=== PATIENT | female | born 1955 | race Caucasian/White ===

== ENCOUNTER 2017-05-06 13:19 | Inpatient (IN) | payer OTHER ==
[~2017-05-06] VITALS: Ht 167.6 cm; Wt 70.5 kg
[~2017-05-06 13:19] MED LIST: ACETAMINOPHEN500 MG PO; ATIVAN1 MG PO; Ativan PO; B-COMPLEX WITH1 EAC3 PO; CLARITIN10 M1 PO; COMBIPATCH 0.01 EACH TD; COQ-10100 MG PO; CRESTOR5 MG PO; EMS NITROSTAT0.4 MG SL; ESTER-C 1,0001 EACH PO; FIORICET,ESG1 TABLET PO; FISH OIL 1,0001 EAC7 PO; FLEXERIL10 MG PO; HYDROCHLOROTHIA25 MG PO; KEFLEX500 MG PO; LORAZEPAM1 MG PO; MACROBID100 MG PO; MIRALAX255 GM PO; MIRTAZAPINE15 MG PO; OXYCONTIN20 MG PO; OXYCONTIN40 MG PO; PERCOCET 10/1 TABLET PO; PROAIR HFA8.5 GM IH; PROCARDIA XL30 MG PO; PROVENTIL,2.5 MG/0.5 IH; PROVENTIL17 G1 IH; Remeron PO; SUDAFED PE PRE1 EAC2 PO; SUDAFED30 MG PO; Sudafed PO; ZANTAC300 MG PO
[2017-05-06 14:05] LABS: HEMATOCRIT 38.1 % (36.0-46.0); MCH 29.2 PG (29.0-34.0); MCHC 34.4 G/DL (30.0-36.0); MCV 84.9 FL (83-99); MEAN PLAT.VOLUME 9.5 uM^3 (9.5-12.4); PLATELET COUNT 287 K/uL (156-360); RBC DIS.WIDTH-CV 13.4 % (11.8-14.6); RBC DIS.WIDTH-SD 42.1 % (39-53); RED BLOOD COUNT 4.49 M/uL (3.80-5.20); WHITE BLOOD COUNT 24.8 K/uL (4.1-10.2)
[2017-05-06 14:24] LABS: CHLORIDE 93 mEq/L (99-109); POTASSIUM 2.6 mEq/L (3.7-5.4); SODIUM 135 mEq/L (136-147)
[2017-05-06 14:27] LABS: GLUCOSE 139 mg/dL (70-99)
[2017-05-06 14:28] LABS: ANION GAP 15 MEQ/L (2-14)
[2017-05-06 14:29] LABS: TOTAL BILIRUBIN 0.7 mg/dL (0.0-1.0)
[2017-05-06 14:30] LABS: ALKALINE PHOSPHATASE 65 IU/L (3-129); GFR ESTIMATE (CALCULATED) > 59 mL/min/
[2017-05-06 14:31] LABS: UREA NITROGEN (BUN) 12 mg/dL (9-23)
[2017-05-06 14:34] LABS: TROP-I INTERPRETATION NEGATIVE; TROPONIN-I < 0.01 ng/mL (0.0-0.30)
[2017-05-06] MEDS ORDERED: OXYCODONE HCL10 MG PO (17:13)
[2017-05-06 20:14] VITALS: BP 137/70
[2017-05-06 23:32] VITALS: BP 137/65
[2017-05-07 03:43] VITALS: BP 133/68
[2017-05-07 08:43] VITALS: BP 127/65
[2017-05-07 09:32] LABS: BASOPHIL COUNT 0.1 K/uL (0-0.1); EOSINOPHIL (%) 0.2 % (0-5); HEMATOCRIT 32.1 % (36.0-46.0); IMMATURE GRANULOCYTE (%) 0.7 % (0.0-0.7); IMMATURE GRANULOCYTE COUNT 0.1 K/uL; INSTRUMENT ABS NEUTROPHIL CT 15.1 K/uL; LYMPHOCYTE COUNT 2.9 K/uL (1.0-2.8); MCH 29.7 PG (29.0-34.0); MCV 87.5 FL (83-99); MONOCYTE (%) 6.5 % (3-12); MONOCYTE COUNT 1.3 K/uL (0-0.8); NEUTROPHIL (%) 77.2 % (45-76); NEUTROPHIL COUNT 15.1 K/uL (1.8-6.4); PLATELET COUNT 274 K/uL (156-360); RBC DIS.WIDTH-CV 13.9 % (11.8-14.6); RBC DIS.WIDTH-SD 44.5 % (39-53); RED BLOOD COUNT 3.67 M/uL (3.80-5.20); WHITE BLOOD COUNT 19.5 K/uL (4.1-10.2)
[2017-05-07 10:09] LABS: ANION GAP 11 MEQ/L (2-14); CHLORIDE 99 MEQ/L (99-109); GFR ESTIMATE (CALCULATED) > 59 mL/min/; SAMPLE HEMOLYSIS CHECK 0; SAMPLE ICTERIC CHECK 0; SAMPLE LIPEMIA CHECK 0; SODIUM 137 MEQ/L (136-147); UREA NITROGEN (BUN) 8 mg/dL (9-23)
[2017-05-07 10:13] LABS: GLUCOSE 102 mg/dL (70-99); POTASSIUM 3.4 MEQ/L (3.7-5.4)
[2017-05-07 12:35] VITALS: BP 110/57
[2017-05-07 16:25] VITALS: BP 115/62
[2017-05-07 19:24] VITALS: BP 125/68
[2017-05-07 23:20] VITALS: BP 115/63
[2017-05-08 03:51] VITALS: BP 119/66
[2017-05-08 07:18] VITALS: BP 117/82
[2017-05-08 09:26] LABS: HEMATOCRIT 36.1 % (36.0-46.0); MCH 29.5 PG (29.0-34.0); MCHC 33.8 G/DL (30.0-36.0); MCV 87.4 FL (83-99); MEAN PLAT.VOLUME 9.6 uM^3 (9.5-12.4); PLATELET COUNT 316 K/uL (156-360); RED BLOOD COUNT 4.13 M/uL (3.80-5.20)
[2017-05-08 09:52] LABS: ANION GAP 10 MEQ/L (2-14); CHLORIDE 96 MEQ/L (99-109); POTASSIUM 3.2 MEQ/L (3.7-5.4); SAMPLE HEMOLYSIS CHECK 0; SAMPLE ICTERIC CHECK 0; SAMPLE LIPEMIA CHECK 0; SODIUM 135 MEQ/L (136-147)
[2017-05-08 09:54] LABS: GFR ESTIMATE (CALCULATED) > 59 mL/min/; GLUCOSE 118 mg/dL (70-99); UREA NITROGEN (BUN) 10 mg/dL (9-23)
[2017-05-08 10:03] LABS: EOSINOPHIL (%) 0.4 % (0-5); EOSINOPHIL COUNT 0.1 K/uL (0-0.3); IMMATURE GRANULOCYTE (%) 0.9 % (0.0-0.7); IMMATURE GRANULOCYTE COUNT 0.1 K/uL; INSTRUMENT ABS NEUTROPHIL CT 10.5 K/uL; LYMPHOCYTE COUNT 2.3 K/uL (1.0-2.8); MONOCYTE (%) 6.8 % (3-12); NEUTROPHIL (%) 75.1 % (45-76); NEUTROPHIL COUNT 10.5 K/uL (1.8-6.4)
[2017-05-08 11:17] VITALS: BP 128/63
[2017-05-08 15:10] VITALS: BP 145/70
[2017-05-08 20:06] VITALS: BP 111/57
[2017-05-09 00:08] VITALS: BP 121/65
[2017-05-09 07:46] VITALS: BP 130/68
[2017-05-09 08:29] LABS: HEMATOCRIT 36.4 % (36.0-46.0); MCH 29.8 PG (29.0-34.0); MCHC 34.1 G/DL (30.0-36.0); MCV 87.5 FL (83-99); MEAN PLAT.VOLUME 9.9 uM^3 (9.5-12.4); PLATELET COUNT 352 K/uL (156-360); RBC DIS.WIDTH-CV 14.1 % (11.8-14.6); RED BLOOD COUNT 4.16 M/uL (3.80-5.20)
[2017-05-09 09:00] LABS: ANION GAP 13 MEQ/L (2-14); CHLORIDE 97 MEQ/L (99-109); GFR ESTIMATE (CALCULATED) > 59 mL/min/; GLUCOSE 122 mg/dL (70-99); SAMPLE HEMOLYSIS CHECK 0; SAMPLE ICTERIC CHECK 0; SAMPLE LIPEMIA CHECK 0; SODIUM 138 MEQ/L (136-147); UREA NITROGEN (BUN) 12 mg/dL (9-23)
[2017-05-09 09:06] LABS: POTASSIUM 3.9 MEQ/L (3.7-5.4)
[2017-05-09] MEDS ORDERED: CEFDINIR300 MG PO (13:24)
[2017-05-09] MEDS ORDERED: SPIRIVA RESPIMAT4 GM IH (14:11)
[2017-05-09] MEDS ORDERED: BENZONATATE100 MG PO (14:12)
[2017-05-09 15:04] VITALS: BP 151/64
== END 2017-05-09 15:34 | disposition home or self-care (01) | DRG 871 ==
LOC: EME 13:19 → EDOF 19:14 → 5SOUTH 19:14
PROVIDERS: Emergency Medicine; Hospitalist; Nurse Practitioner Adult Health
DX: A41.9 Sepsis, unspecified organism (principal); J96.01 Acute respiratory failure with hypoxia; E87.6 Hypokalemia; F17.210 Nicotine dependence, cigarettes, uncomplicated; I10 Essential (primary) hypertension; I44.7 Left bundle-branch block, unspecified; J18.9 Pneumonia, unspecified organism; J44.0 Chronic obstructive pulmonary disease with (acute) lower respiratory infection; J44.1 Chronic obstructive pulmonary disease with (acute) exacerbation; G89.29 Other chronic pain; K21.9 Gastro-esophageal reflux disease without esophagitis; M54.9 Dorsalgia, unspecified; Z82.3 Family history of stroke; Z88.8 Allergy status to other drugs, medicaments and biological substances
CPT/HCPCS: 71010; 71020; 71250; 80048; 80053; 83605; 84484; 85025; 85027; 87040; 87070; 87205; 87449; 93005; 94640; 94640 76; 94760; 94799; 99202; 99281; 99285; J0696; J1200; J1644; J3480; J7030; J7050; J7644